=== PATIENT | female | born 1950 | race Caucasian/White ===

== ENCOUNTER 2023-01-22 11:03 | Emergency (ER) | payer OTHER ==
[~2023-01-22] VITALS: Ht 162.6 cm; Wt 61.4 kg
[2023-01-22 16:18] VITALS: BP 143/86; PULSE 84; RESP 18; TEMP 98.5
== END 2023-01-22 17:37 | disposition home or self-care (01) ==
LOC: EMS 11:03
DX: S01.511A Laceration without foreign body of lip, initial encounter (principal); S09.90XA Unspecified injury of head, initial encounter; Z98.890 Other specified postprocedural states; Z88.2 Allergy status to sulfonamides; Z88.6 Allergy status to analgesic agent; W18.39XA Other fall on same level, initial encounter; Y93.89 Activity, other specified; Y92.89 Other specified places as the place of occurrence of the external cause; Y99.8 Other external cause status
CPT/HCPCS: 70450; 72125; 99284